=== PATIENT | female | born 1980 | race Two or more races ===

== ENCOUNTER 2017-12-14 00:06 | Emergency (ER) | payer SELFPAY ==
[~2017-12-14] VITALS: Ht 157.5 cm; Wt 59.0 kg
[2017-12-14 00:30] VITALS: BP 104/67
[2017-12-14] MEDS ORDERED: Albuterol ud Inhalation HHN ONE (00:30)
[2017-12-14] MEDS ORDERED: ALBUTEROL SULF8.5 GM INH (00:34)
[2017-12-14] MEDS ORDERED: PREDNISONE20 MG ORAL (00:34)
--- NOTE | 2017-12-14 00:35 | Emergency Room Report ---
History of Present Illness General Chief Complaint: General Complaint Source: Patient Present Illness HPI Is a 37-year-old female with history of asthma as a kid. She presents with chief complaint of short of breath. This morning she woke up and had a sore throat and loss of voice. Tonight, about an hour prior to arrival, she was coughing and felt like her throat closing off. She couldn't breathe for about 22nd. Better now but still felt short of breath. No fever chills but no nausea no vomiting. Worse with deep breathing. Not on control pill. No calf tenderness. Allergies: Coded Allergies: No Known Allergies (Unverified , 12/14/17) Patient History Past Medical History: see triage record, old chart reviewed, asthma Past Surgical History: other Pertinent Family History: none Social History: Denies: smoking Last Menstrual Period: 12/11/17 Now: No Immunizations: other Reviewed Nursing Documentation: PMH: Agreed; PSxH: Agreed Nursing Documentation-PMH Past Medical History: No History, Except For Hx Asthma: Yes - PNA Review of Systems Eye: Denies: eye pain, blurred vision ENT: Reports: throat swelling; Denies: ear pain, nose congestion Respiratory: Reports: cough, shortness of breath Cardiovascular: Denies: chest pain, palpitations Gastrointestinal: Denies: abdominal pain, diarrhea, nausea, vomiting Musculoskeletal: Denies: back pain, joint pain Skin: Denies: rash Neurological: Denies: headache, numbness Endocrine: Denies: increased thirst, increased urine Hematologic/Lymphatic: Denies: easy bruising All Other Systems: negative except mentioned in HPI Physical Exam Vital Signs Date Time Temp Pulse Resp B/P (MAP) Pulse Ox O2 Delivery O2 Flow Rate FiO2 12/14/17 00:14 98.2 70 16 104/67 97 Room Air 98.2 vitals normal Sp02 EP Interpretation: reviewed, normal General Appearance: well appearing, no apparent distress, alert Head: normocephalic, atraumatic Eyes: bilateral eye PERRL, bilateral eye EOMI ENT: hearing grossly normal, normal pharynx, uvula midline - elongated Neck: full range of motion, supple, no meningismus Respiratory: chest non-tender, lungs clear, normal breath sounds Cardiovascular #1: regular rate, rhythm, no murmur Gastrointestinal: normal bowel sounds, non tender, no mass, no organomegaly, no bruit, non-distended Musculoskeletal: back normal, gait/station normal, normal range of motion Psychiatric: mood/affect normal Skin: warm/dry Medical Decision Making Diagnostic Impression: Primary Impression: Dyspnea Qualified Codes: R06.00 - Dyspnea, unspecified Additional Impression: Laryngitis, acute ER Course Patient with a laryngitis and probably spasm causing her dyspnea. No evidence of Dr. infection. No evidence of respiratory distress. We'll discharge home. Last Vital Signs Date Time Temp Pulse Resp B/P (MAP) Pulse Ox O2 Delivery O2 Flow Rate FiO2 12/14/17 00:14 98.2 70 16 104/67 97 Room Air 98.2 Status: improved Disposition: HOME, SELF-CARE Condition: Stable Scripts Prednisone* (PREDNISONE*) 20 Mg Tablet 40 MG ORAL DAILY, #8 TAB Prov: DARRYL PETTY M.D. 12/14/17 Albuterol Sulfate* (ALBUTEROL SULFATE MDI*) 8.5 Gm Hfa.aer.ad 2 PUFF INH Q4H PRN for cough/wheezing, #1 EA 0 Refills Prov: DARRYL PETTY M.D. 12/14/17 Additional Instructions: Rest your voice. Saltwater gargle. Follow-up with your doctor in 7 days. Return if symptom worsen. DARRYL PETTY M.D. Dec 14, 2017 00:34
[2017-12-14 01:06] VITALS: BP 104/67
== END 2017-12-14 01:06 | disposition home or self-care (01) ==
LOC: EMR 00:48
DX: R06.00 Dyspnea, unspecified (principal); J04.0 Acute laryngitis; Z87.01 Personal history of pneumonia (recurrent)
CPT/HCPCS: 94640; 94664; 99284; J7512